=== PATIENT | female | born 1970 | race Caucasian/White ===

== ENCOUNTER → 2016-05-02 | Outpatient (CLI) | payer OTHER ==
[~2016-05-02] MED LIST: ACID CONTROL150 MG PO; ASPIRIN81 MG PO; ATENOLOL50 MG PO; BACTRIM DS TABL1 TA1 PO; CATAPRES0.1 M1 PO; COZAAR100 MG PO; CYMBALTA30 MG PO; DIFLUCAN PO; FLEXERIL10 MG PO; GLUCOPHAGE500 M1 PO; GLUCOTROL PO; INVOKANA300 MG PO; K-DUR20 ME1 PO; MAGNESIUM400 M1 PO; NEURONTIN100 MG PO; PAXIL40 MG PO; PENTOXIFYLINE100 GM PO; PRILOSEC20 M1 PO
--- NOTE | ~2016-05-02 | MY11 ---
[facility] A Service of [facility] RADIOLOGY TEXT RESULTS PATIENT: DELBERT MOODY LOCATION: [facility] : 70 UNIT #: [id number] AGE: [address]: Eli Parsons MD SEX: F ORDER DR: [id number] [facility] [address] [place], [place] [address] [id number] O MR#: [id number] Acc #: [id number] NAME: DELBERT MOODY : 1970 SEX: F STUDY DATE/TIME: 05/02/2016 10:56 UNIT: [facility] ROOM: STUDY DESCRIPTION: MY Mammogram Screening Dig Aly Attending Physician: Eli Parsons M.D. Ordering Physician: Eli Parsons M.D. Primary Care Physician: Eli Parsons M.D. MEDICAL IMAGING REPORT This report is preliminary unless electronic signature is present EXAM Screening mammogram, 05/02 INDICATION 45-year-old with no personal history but a positive family history of breast cancer. No current complaints. FINDINGS Routine digital screening views of both breasts were obtained. Study is reviewed with an FDA-approved CAD device. Comparison is made with 04/30/2015, 08/20/2009. Breast parenchyma shows scattered fibroglandular densities. Benign intramammary lymph node in the upper outer left breast is stable. No suspicious microcalcifications in either breast. In the central right breast on the CC view there is a 5.0 mm nodular asymmetry. In the deep lateral left breast on the CC view, there is also an area of asymmetrically dense tissue. Followup with spot compression views and a true lateral views recommended. Ultrasound may ultimately be needed as well. IMPRESSION Asymmetries in both breasts in the CC views. Additional imaging recommended. Patients over the age of 40 are entered into a reminder system with target due date for the next mammogram. A result letter will also be sent to the patient. BIRADS 0 Incomplete: Need Additional Imaging Evaluation and/or Prior Mammograms for Comparison Dictated by... Octaviano Carreno Jr., M.D. [facility] A Service of [facility] RADIOLOGY TEXT RESULTS PATIENT: DELBERT MOODY LOCATION: [facility] : 70 UNIT #: [id number] AGE: [address]: Eli Parsons MD SEX: F ORDER DR: THIS IS AN ELECTRONICALLY VERIFIED REPORT Octaviano Carreno Jr., M.D. at 05/02/2016 4:48 PM ALIS/benitez TD: 05/02/2016 14:06 JOB #: [id number] MEDICAL IMAGING REPORT Page 1 of 1 COPY
== END | disposition home or self-care (01) ==
LOC: CWCC 10:28
DX: Z12.31 Encounter for screening mammogram for malignant neoplasm of breast (principal); Z80.3 Family history of malignant neoplasm of breast; N64.89 Other specified disorders of breast
CPT/HCPCS: G0202

== ENCOUNTER → 2016-05-10 | Outpatient (CLI) | payer OTHER ==
--- NOTE | ~2016-05-10 | US17 ---
[facility] A Service of [facility] RADIOLOGY TEXT RESULTS PATIENT: DELBERT MOODY LOCATION: [facility] : 70 UNIT #: [id number] AGE: [address]: Eli Parsons MD SEX: F ORDER DR: [id number] [facility] [address] [place], [place] [address] [id number] O MR#: [id number] Acc #: [id number] NAME: DELBERT MOODY : 1970 SEX: F STUDY DATE/TIME: 05/10/2016 15:28 UNIT: [facility] ROOM: STUDY DESCRIPTION: US Breast Bilateral Attending Physician: Eli Parsons M.D. Referring Physician: Eli Parsons M.D. Ordering Physician: Eli Parsons M.D. Primary Care Physician: Eli Parsons M.D. MEDICAL IMAGING REPORT This report is preliminary unless electronic signature is present EXAM Bilateral breast ultrasound. DATE OF EXAM 05/10/2016 HISTORY Bilateral breast nodules on screening mammogram, 05/02/2016. The left breast nodule effaced on spot compression, but there is persistence of the right breast nodule. Bilateral breast ultrasound was requested for further evaluation. FINDINGS Ultrasound of the right breast revealed no abnormal finding. Ultrasound of the left breast did reveal an incidental cluster of small cysts at the 3 o'clock position. No corresponding mammographic abnormality was seen. IMPRESSION No ultrasound abnormality is seen to correspond to the right breast nodule. The left breast nodule was noted to efface on spot compression. Followup right mammogram is recommended in 6 months to assess the nodule for stability. Patients over the age of 40 are entered into a reminder system with target due date for the next mammogram. A result letter will also be sent to the patient. BIRADS: 3 Probably benign finding; short interval followup suggested. Dictated by... [facility] A Service [facility] RADIOLOGY TEXT RESULTS PATIENT: DELBERT MOODY LOCATION: [facility] : 70 UNIT #: [id number] AGE: [address]: Eli Parsons MD SEX: F ORDER DR: Mason Maravilla M.D. THIS IS AN ELECTRONICALLY VERIFIED REPORT Mason Maravilla M.D. at 05/11/2016 8:30 AM KELSY/sidney TD: 05/10/2016 21:23 JOB #: [id number] MEDICAL IMAGING REPORT Page 1 of 1 COPY
--- NOTE | ~2016-05-10 | MY6 ---
[facility] A Service of [facility] RADIOLOGY TEXT RESULTS PATIENT: DELBERT MOODY LOCATION: [facility] : 70 UNIT #: [id number] AGE: [address]: Eli Parsons MD SEX: F ORDER DR: [id number] [facility] [address] [place], [place] [address] [id number] O MR#: [id number] Acc #: [id number] NAME: DELBERT MOODY : 1970 SEX: F STUDY DATE/TIME: 05/10/2016 15:07 UNIT: [facility] ROOM: STUDY DESCRIPTION: MY Mammogram Dx Dig Aly Attending Physician: Eli Parsons M.D. Referring Physician: Eli Parsons M.D. Ordering Physician: Eli Parsons M.D. Primary Care Physician: Eli Parsons M.D. MEDICAL IMAGING REPORT This report is preliminary unless electronic signature is present EXAM Bilateral digital diagnostic mammogram. DATE OF EXAM 05/10/2016 HISTORY Screening mammogram obtained 05/02/2016 demonstrated bilateral breast nodules seen only in the craniocaudal projections. Bilateral spot compression was recommended for further evaluation. FINDINGS Digital mediolateral view of both breasts was obtained as well as spot compression of both breasts in the craniocaudal projection. The 5 mm nodule in the right breast persists on spot compression and appears well-circumscribed. There is effacement of the nodular density in the left breast on spot compression. No suspicious cluster of microcalcifications was seen. The films have been reviewed by an FDA-approved CAD device. Ultrasound of the right breast revealed no abnormal finding. Ultrasound of the left breast revealed a small cluster of cysts which was an incidental finding. Followup right mammogram is recommended in 6 months to assess the nodule for stability. IMPRESSION Persistence of the nodule in the right breast on spot compression and effacement of the nodule in the left breast on spot compression. No ultrasound abnormality was seen to correspond to the mammographic abnormality in the right breast. Followup right mammogram in 6 months is recommended to further assess this probably benign finding for stability. Patients over the age of 40 are entered into a reminder system with target due date for the next mammogram. A result letter will also be sent to the [facility] A Service of [facility] RADIOLOGY TEXT RESULTS PATIENT: DELBERT MOODY LOCATION: [facility] : 70 UNIT #: [id number] AGE: [address]: Eli Parsons MD SEX: F ORDER DR: patient. BIRADS: 3 Probably benign finding; short interval followup suggested. STAT * RESULT Dictated by... Mason Maravilla M.D. THIS IS AN ELECTRONICALLY VERIFIED REPORT Mason Maravilla M.D. at 05/11/2016 8:26 AM KELSY/sidney TD: 05/10/2016 17:08 JOB #: [id number] MEDICAL IMAGING REPORT Page 1 of 1 COPY
== END | disposition home or self-care (01) ==
LOC: CMAM 14:28
DX: R92.8 Other abnormal and inconclusive findings on diagnostic imaging of breast (principal); N63 Unspecified lump in breast
CPT/HCPCS: 76641; G0204

== ENCOUNTER → 2016-06-16 | Outpatient (CLI) | payer OTHER ==
--- NOTE | ~2016-06-16 | US135 ---
[facility] A Service of [facility] RADIOLOGY TEXT RESULTS PATIENT: DELBERT MOODY LOCATION: [facility] : 70 UNIT #: [id number] AGE: [address]: Demarcus Jones MD SEX: F ORDER DR: [id number] [facility] [address] [place], [place] [address] [id number] O MR#: [id number] Acc #: [id number] NAME: DELBERT MOODY : 1970 SEX: F STUDY DATE/TIME: 06/16/2016 14:36 UNIT: [facility] ROOM: STUDY DESCRIPTION: US U/L Ext Art Study Comp Aly Attending Physician: Demarcus Jones M.D. Referring Physician: Demarcus Jones M.D. Ordering Physician: Demarcus Jones M.D. Primary Care Physician: Eli Parsons M.D. MEDICAL IMAGING REPORT This report is preliminary unless electronic signature is present EXAM Ankle-brachial indices with segmental pressures HISTORY peripheral neuropathy FINDINGS The right brachial artery pressure is 131. The right upper thigh is 136, lower thigh 156, calf 140. The right dorsalis pedis pressure is 130 with ankle-brachial index of 1.05. The right posterior tibial pressure is 131 with an ankle-brachial index of 1.00. The right digital pressure is 120 with a toe index of 0.92. The left brachial artery pressure is 128. The left upper thigh pressure is 164, lower thigh 167, calf 136. The left dorsalis pedis is 144, with an ankle-brachial index of 1.10. The left posterior tibial pressure is 140 with an ankle-brachial index of 1.07. The left digital pressure is 119 with a toe index of 0.91. Pulse volume recordings demonstrate sharp upstroke and systolic peak with dicrotic notch at the upper thigh, lower thigh, calf levels bilaterally. The left ankle waveforms are blunted in comparison to the right. Toe digital waveforms are blunted on the right in comparison to the left. Posterior tibial waveforms are biphasic bilaterally. Dorsalis pedis waveform is biphasic on the right and triphasic on the left. IMPRESSION 1. The right CHARMAINE is 1.05 with no evidence for arterial insufficiency. 2. The left CHARMAINE is 1.10 with no evidence of arterial insufficiency. [facility] A Service of [facility] RADIOLOGY TEXT RESULTS PATIENT: DELBERT MOODY LOCATION: [facility] : 70 UNIT #: [id number] AGE: [address]: Demarcus Jones MD SEX: F ORDER DR: Dictated by... Nicholas Spencer M.D. THIS IS AN ELECTRONICALLY VERIFIED REPORT Nicholas Spencer M.D. at 06/17/2016 9:21 AM LAURA/avel TD: 06/16/2016 22:30 JOB #: [id number] MEDICAL IMAGING REPORT Page 1 of 1 COPY
== END | disposition home or self-care (01) ==
LOC: CNIV 09:00
DX: E11.42 Type 2 diabetes mellitus with diabetic polyneuropathy (principal); I73.9 Peripheral vascular disease, unspecified
CPT/HCPCS: 93923